=== PATIENT | male | born 1940 | race Caucasian/White ===

== ENCOUNTER → 2019-04-01 | Outpatient (CLI) | payer MEDICARE, OTHER ==
--- NOTE | 2019-04-01 13:57 | Diagnostic Imaging Report ---
EXAMINATION: Magnetic resonance imaging of the right shoulder without contrast. DATE: April 01, 2019. COMPARISON: None. HISTORY: 79-year-old male, right shoulder pain. Fall one week ago. TECHNIQUE: Magnetic Resonance Imaging sequences were performed of the shoulder without contrast. FINDINGS: ROTATOR CUFF, LIGAMENTS, TENDONS, AND MUSCLES: There are full thickness full width tears of supraspinatus, infraspinatus, and subscapularis. Tendon retraction is near the level of the glenoid. There is severe fatty atrophy of these muscles. The teres minor tendon and muscle are intact. There are intramuscular ganglion cyst associated with supraspinatus, infraspinatus, and subscapularis. LONG HEAD OF BICEPS: The long head of biceps tendon is medially dislocated outside of the bicipital groove. The biceps labral attachment does appear to be intact. GLENOHUMERAL JOINT: The humeral head is superiorly subluxed and directly abuts the undersurface of the acromion. There is asymmetric widening of the posterior aspect of the glenohumeral joint. There are broad areas of full-thickness cartilage loss of the glenoid. There is a large glenohumeral joint effusion. There is an intra-articular body in the subscapularis recess measuring approximately 10 x 7 mm in size. There is a probable posterior labral tear. There is irregularity of the superior labrum. ACROMIOCLAVICULAR JOINT: The acromioclavicular joint is normally aligned. The coracoclavicular and coracoacromial ligaments are intact. There are moderate acromioclavicular degenerative changes. The inferior margin of the distal clavicle is extending 8 mm below the joint margin. BONE: There is a probable fracture rather than atypical os acromiale of the tip of the acromion. There is no additional identified potential fracture. BURSAE AND SOFT TISSUES: There is fluid in the subacromial subdeltoid bursa consistent with the full-thickness rotator cuff tendon tears, bursitis, and/or recent injection. IMPRESSION: 1. Massive rotator cuff tendon tear with full thickness full width tears of the supraspinatus, infraspinatus, and subscapularis tendons with tendon retraction near the level of the glenoid and severe fatty atrophy of these muscles. There are also intramuscular ganglion cysts associated with supraspinatus, infraspinatus, and subscapularis. 2. Acromial clavicular degenerative changes with extension of the inferior margin of the distal clavicle 8 mm below the expected joint margin. 3. The long head of biceps tendon is medially dislocated outside of the bicipital groove although is otherwise intact. 4. Severe glenohumeral arthritis. Large glenohumeral joint effusion with intra-articular body in the subscapularis recess measuring 10 x 7 mm in size. 5. Probable mildly displaced fracture of the tip of the acromion rather than atypical variant os acromiale. Dictated by: Dictated on workstation # [id number]
== END ==
LOC: RAD 12:15
PROVIDERS: ATTEND Family Medicine
DX: M75.101 Unspecified rotator cuff tear or rupture of right shoulder, not specified as traumatic (principal); M19.011 Primary osteoarthritis, right shoulder
CPT/HCPCS: 73221

== ENCOUNTER 2019-07-18 21:53 | Emergency (ER) | payer MEDICARE, OTHER ==
[~2019-07-18] VITALS: Ht 175.3 cm; Wt 112.7 kg
--- OUTSIDE RECORDS SUMMARY | 2019-07-18 22:02 | XMS REPORT | Clinical Summary ---
Author Author Admin, Adam White Organization [facility] Address Unknown Phone Unavailable Allergies, Adverse Reactions, Alerts Allergy Name Reaction Description Start Date Severity Status Pr ovider Allergies Unknown Conditions or Problems Problem Name Problem Code Onset Date Status Entry Date Provider Comment Standard Description Annotate Scrotal mass 608.89 Active Amber Babcock MD Other specified disorders of male genital organs Influenza Vaccination for Prophylaxis V04.81 Inactive Amber Babcock MD Need for prophylactic vaccin ation and inoculation against influenza Influenza Vaccination for Prophylaxis ICD-V04.81 9 Inactive Chanel Trejo HOSPITAL NURSING ASSISTANT Medication List Medication Instructions Start Date Stop Date Generic Name NDC Status Provider Patient Instruction Drug Treatment Unknown - unknown Advance Directives Directive Description Start Date PERMISSION TO SHARE Encounters Code Encounter Date Provider Facility CPT-24367 Level 3 New Patient 06:56:37 SENIOR FORMULATION SCIENTIST Amber wood MD [facility] Procedures Code Procedure Name Date Entry Date Standard Desc ription CPT-49110 Ultrasound - Prostatic for Bx 06:56:37 SENIOR FORMULATION SCIENTIST
--- OUTSIDE RECORDS SUMMARY | 2019-07-18 22:02 | XMS REPORT | Clinical Summary ---
Author Author Admin, Adam White Organization [facility] Address Unknown Phone Unavailable Allergies, Adverse Reactions, Alerts Allergy Name Reaction Description Start Date Severity Status Pr ovider ADVAIR swelling, SOA Critical Active Chanel middleton LPN Conditions or Problems Problem Name Problem Code Onset Date Status Entry Date Provider Comment Standard Description Annotate Scrotal mass 608.89 Active Amber Babcock MD Other specified disorders of male genital organs Influenza Vaccination for Prophylaxis V04.81 Inactive Amber Babcock MD Need for prophylactic vaccin ation and inoculation against influenza BMI 36-36.9 Active Amber Babcock MD Body Mass Index 36.0- 36.9, adult INGUINAL HERNIA, RIGHT 550.90 Active Amber Babcock MD Unilateral or unspecified inguinal herni a, without mention of obstruction or gangrene (not specified as recurrent) Phimosis 605 Active Amber Babcock MD Redundant prepuce and phimosis Influenza Vaccination for Prophylaxis ICD-V04.81 9 Inactive Chanel Trejo LPN Medication List Medication Instructions Start Date Stop Date Generic Name NDC Status Provider Patient Instruction NORCO 5-325 MG ORAL TABLET 1 tablet as needed every 6 hours HYDROCODONE-ACETAMINOPHEN 59419861268 Active Chanel Trejo LPN Active HYDROCHLOROTHIAZIDE 25 MG ORAL TABLET once daily in the morning 201 10/21/18 HYDROCHLOROTHIAZIDE 78877615002 Active Chanel Trejo LPN Acti ve FLOMAX 0.4 MG ORAL CAPSULE once daily TAMSULOSIN HCL 74405628299 Active Chanel Trejo LPN Active NAPROXEN 500 MG ORAL TABLET 1 tablet twice daily NAPROXEN 38985608098 Active Chanel Trejo SPECIAL EVENTS ASSISTANT Active PAXIL 40 MG ORAL TABLET 1 tablet in the morning, daily PAROXETINE HCL 52347015039 Active Chanel Trejo SPECIAL EVENTS ASSISTANT Active ZOCOR 20 MG ORAL TABLET 1 tablet in the evening SIMVASTATIN 29207637452 Active Chanel Trejo SPECIAL EVENTS ASSISTANT Active LISINOPRIL 20 MG ORAL TABLET once daily LISINOPRI L 29468950233 Active Chanel Trejo SPECIAL EVENTS ASSISTANT Active PROSCAR 5 MG ORAL TABLET once daily FINASTERIDE 24203 489256 Active Chanel Trejo SPECIAL EVENTS ASSISTANT Active Advance Directives Directive Description Start Date PERMISSION TO SHARE Vital Signs Date Name Value Unit Range Description blood pressure, diastolic, repeated by physician 80 BP wilkinson blood pressure, diastolic 80 mm[Hg] BP wilkinson blood pressure, systolic, repeated by physician 120 BP sys blood pressure, systolic 120 mm[Hg] BP sys height E&M 69 [in_us] Bdy height pulse rate E&M 90 /min Heart rate temperature E&M 98.2 [degF] Body temp erature weight E&M 248 [lb_av] Weight Measure d blood pressure, diastolic 80 mm[Hg] BP wilkinson blood pressure, systolic 136 mm[Hg] BP sys height E&M 69 [in_us] Bdy height weight E&M 248 [lb_av] Weight Measure d Diagnostic Results Date Name Value Unit Range Description Office Visit: f/u inguinal hernia repair /circumcision - PMH sexually transmitted disease no risk noted Encounters Code Encounter Date Provider Facility CPT-79434 Level 3 Est. Patient 14:23:19 CDT Amber simmons MD [facility] CPT-53116 Level 3 New Patient 06:56:37 QUAL FIELD MANAGER Amber wood MD [facility] Procedures Code Procedure Name Date Entry Date Standard Desc ription CPT-20258 Ultrasound - Prostatic for Bx 06:56:37 QUAL FIELD MANAGER
--- OUTSIDE RECORDS SUMMARY | 2019-07-18 22:02 | XMS REPORT ---
Author Author Adam LEMON Organization [facility] Address [address] [address] Care Team Providers Care Water Plant Maintenance Mechanic Name Role Phone ION WINSOME Unavailable PROBLEMS Type Condition ICD9-CM Code IWO33-HA Code Onset Dates Condition S tatus SNOMED Code Problem Essential hypertension I10 Active 11916429 Problem Other chronic pain G89.29 Active 8 1396078 Problem Elevated cholesterol E78.00 Active 98279756 Problem History of colon resection Z90.49 Act alyson 147211533 Problem Depressed mood F32.9 Active 87207 9004 Problem Gastroesophageal reflux disease without esophagitis K21.9 Active 141218937 ALLERGIES No Information ENCOUNTERS Encounter Location Date Diagnosis [place] [address] [place] [phone] June [place] [address] [place] [phone] [address] June Gastroesophageal reflux disease without esophagitis K21.[address] [address] [address] [address] May [place] [address] [place] [phone] [address] Mar, Elevated glucose R73.09 and Diarrhea, un specified type R19.7 [place] [address] [place] [address] Mar Elevated glucose R73.09 ; Gastroesophageal reflux disease without esophagitis K21.9 ; History of colon resection Z90.49 ; Diarrhea, unspecified type R19.7 and Lower abdominal pain R10.[address] [address] Mar, [address] [address] Mar, [address] [address] Feb, Elevated glucose R73.[address] [address] Feb, Elevated cholesterol E78.00 ; Depressed mood F32.9 ; Pain in unspecified joint M25.50 ; Other chronic pain G89.29 ; Gastroesophageal reflux disease without esophagitis K21.9 ; Essential hypertension I10 and History of colon resection Z90.49 [facility] [address] [facility] [id number] [place] [address] Feb, [address] [address] Feb, [address] [address] Feb, IMMUNIZATIONS No Known Immunizations SOCIAL HISTORY Never Assessed REASON FOR VISIT JLA ESCRIBE PLAN OF CARE VITAL SIGNS MEDICATIONS Medication Instructions Dosage Frequency Start Date End Date Duration S tatus Bradley 5-325 MG Orally every 6 hrs 1 tablet as needed 6h 07 Apr, 201 9 28 days Active RESULTS No Results PROCEDURES No Known procedures INSTRUCTIONS MEDICATIONS ADMINISTERED No Known Medications MEDICAL (GENERAL) HISTORY Type Description Date 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
--- OUTSIDE RECORDS SUMMARY | 2019-07-18 22:02 | XMS REPORT | Clinical Summary ---
Author Author Admin, Adam White Organization [facility] Address Unknown Phone Unavailable Allergies, Adverse Reactions, [...] for Prophylaxis ICD-V04.81 9 Inactive Chanel Trejo CHEMICAL PROCESS ANALYST Medication List Medication Instructions Start Date Stop Date Generic Name NDC Status Provider Patient Instruction Drug Treatment Unknown - unknown Encounters Code Encounter Date Provider Facility CPT-72033 Level 3 New Patient 06:56:37 WIPER BLENDER Amber wood MD [facility] Procedures Code Procedure Name Date Entry Date Standard Desc ription CPT-92534 Ultrasound - Prostatic for Bx 06:56:37 WIPER BLENDER
--- OUTSIDE RECORDS SUMMARY | 2019-07-18 22:02 | XMS REPORT | Clinical Summary ---
Author Author Admin, Adam White Organization [facility] Address Unknown Phone Unavailable Allergies, Adverse Reactions, [...] tablet as needed every 6 hours HYDROCODONE-ACETAMINOPHEN 31036494284 Active Chanel Trejo LPN Active HYDROCHLOROTHIAZIDE 25 MG ORAL TABLET once daily in the morning 201 10/21/18 HYDROCHLOROTHIAZIDE 92332076614 Active Chanel Trejo LPN Acti ve FLOMAX 0.4 MG ORAL CAPSULE once daily TAMSULOSIN HCL 88782394269 Active Chanel Trejo LPN Active NAPROXEN 500 MG ORAL TABLET 1 tablet twice daily NAPROXEN 46710989317 Active Chanel Trejo JACKSPOOLER Active PAXIL 40 MG ORAL TABLET 1 tablet in the morning, daily PAROXETINE HCL 90422327997 Active Chanel Trejo JACKSPOOLER Active ZOCOR 20 MG ORAL TABLET 1 tablet in the evening SIMVASTATIN 99625438846 Active Chanel Trejo JACKSPOOLER Active LISINOPRIL 20 MG ORAL TABLET once daily LISINOPRI L 50457990717 Active Chanel Trejo JACKSPOOLER Active PROSCAR 5 MG ORAL TABLET once daily FINASTERIDE 46192 976736 Active Chanel Trejo JACKSPOOLER Active Advance Directives Directive Description Start Date [...] noted Encounters Code Encounter Date Provider Facility CPT-24864 Level 3 Est. Patient 14:23:19 CDT Amber simmons MD [facility] CPT-90666 Level 3 New Patient 06:56:37 STAFF NUCLEAR MEDICINE TECHNOLOGIST Amber wood MD [facility] Procedures Code Procedure Name Date Entry Date Standard Desc ription CPT-79042 Ultrasound - Prostatic for Bx 06:56:37 STAFF NUCLEAR MEDICINE TECHNOLOGIST
--- OUTSIDE RECORDS SUMMARY | 2019-07-18 22:02 | XMS REPORT | Clinical Summary ---
Author Author Admin, Adam White Organization [facility] Address Unknown Phone Unavailable Allergies, Adverse Reactions, Alerts Allergy Name Reaction Description Start Date Severity Status Pr ovider ADVAIR swelling, SOA Critical Active Chanel Gilberto t EXPANDER MACHINE OPERATOR Conditions or Problems Problem Name Problem Code Onset Date Status Entry Date Provider Comment Standard Description Annotate Scrotal mass 608.89 Active Amber Babcock MD Other specified disorders of male genital organs Influenza Vaccination for Prophylaxis V04.81 Inactive Amber Babcock MD Need for prophylactic vaccin ation and inoculation against influenza Influenza Vaccination for Prophylaxis ICD-V04.81 9 Inactive Chanel Trejo EXPANDER MACHINE OPERATOR Medication List Medication Instructions Start Date Stop Date Generic Name NDC Status Provider Patient Instruction NORCO 5-325 MG ORAL TABLET 1 tablet as needed every 6 hours HYDROCODONE-ACETAMINOPHEN 59753435979 Active Chanel Trejo EXPANDER MACHINE OPERATOR Active HYDROCHLOROTHIAZIDE 25 MG ORAL TABLET once daily in the morning 201 10/21/18 HYDROCHLOROTHIAZIDE 79965071466 Active Chanel Trejo EXPANDER MACHINE OPERATOR Acti ve FLOMAX 0.4 MG ORAL CAPSULE once daily TAMSULOSIN HCL 33681071001 Active Chanel Trejo EXPANDER MACHINE OPERATOR Active NAPROXEN 500 MG ORAL TABLET 1 tablet twice daily NAPROXEN 39016109238 Active Chanel Trejo EXPANDER MACHINE OPERATOR Active PAXIL 40 MG ORAL TABLET 1 tablet in the morning, daily PAROXETINE HCL 85522829631 Active Chanel Trejo EXPANDER MACHINE OPERATOR Active ZOCOR 20 MG ORAL TABLET 1 tablet in the evening SIMVASTATIN 55114210366 Active Chanel Trejo EXPANDER MACHINE OPERATOR Active LISINOPRIL 20 MG ORAL TABLET once daily LISINOPRI L 68859836895 Active Chanel Trejo EXPANDER MACHINE OPERATOR Active PROSCAR 5 MG ORAL TABLET once daily FINASTERIDE 80769 067476 Active Chanel Trejo LPN Active Advance Directives Directive Description Start Date PERMISSION TO SHARE Vital Signs Date Name Value Unit Range Description blood pressure, diastolic 80 mm[Hg] BP wilkinson blood pressure, systolic 136 mm[Hg] BP sys height E&M 69 [in_us] Bdy height weight E&M 248 [lb_av] Weight Measure d Encounters Code Encounter Date Provider Facility CPT-46612 Level 3 New Patient 06:56:37 AIRPLANE PILOT COMMERCIAL Amber wood MD [facility] Procedures Code Procedure Name Date Entry Date Standard Desc ription CPT-60754 Ultrasound - Prostatic for Bx 06:56:37 AIRPLANE PILOT COMMERCIAL
--- OUTSIDE RECORDS SUMMARY | 2019-07-18 22:02 | XMS REPORT | Clinical Summary ---
Author Author Admin, Adam White Organization [facility] Address Unknown Phone Unavailable Allergies, Adverse Reactions, Alerts Allergy Name Reaction Description Start Date Severity Status Pr ovider ADVAIR swelling, SOA Critical Active Chanel Gilberto t IT SYSTEMS ADMINISTRATOR Conditions or Problems Problem Name Problem Code Onset Date Status Entry Date Provider Comment Standard Description Annotate Scrotal mass 608.89 Active Amber Babcock MD Other specified disorders of male genital organs Influenza Vaccination for Prophylaxis V04.81 Inactive Amber Babcock MD Need for prophylactic vaccin ation and inoculation against influenza Influenza Vaccination for Prophylaxis ICD-V04.81 9 Inactive Chanel Trejo IT SYSTEMS ADMINISTRATOR Medication List Medication Instructions Start Date Stop Date Generic Name NDC Status Provider Patient Instruction NORCO 5-325 MG ORAL TABLET 1 tablet as needed every 6 hours HYDROCODONE-ACETAMINOPHEN 77752462398 Active Chanel Trejo IT SYSTEMS ADMINISTRATOR Active HYDROCHLOROTHIAZIDE 25 MG ORAL TABLET once daily in the morning 201 10/21/18 HYDROCHLOROTHIAZIDE 63825927461 Active Chanel Trejo IT SYSTEMS ADMINISTRATOR Acti ve FLOMAX 0.4 MG ORAL CAPSULE once daily TAMSULOSIN HCL 08086986832 Active Chanel Trejo IT SYSTEMS ADMINISTRATOR Active NAPROXEN 500 MG ORAL TABLET 1 tablet twice daily NAPROXEN 72786997293 Active Chanel Trejo IT SYSTEMS ADMINISTRATOR Active PAXIL 40 MG ORAL TABLET 1 tablet in the morning, daily PAROXETINE HCL 48061347487 Active Chanel Trejo IT SYSTEMS ADMINISTRATOR Active ZOCOR 20 MG ORAL TABLET 1 tablet in the evening SIMVASTATIN 53173611571 Active Chanel Trejo IT SYSTEMS ADMINISTRATOR Active LISINOPRIL 20 MG ORAL TABLET once daily LISINOPRI L 66747387267 Active Chanel Trejo IT SYSTEMS ADMINISTRATOR Active PROSCAR 5 MG ORAL TABLET once daily FINASTERIDE 75485 287231 Active Chanel Trejo LPN Active Advance Directives Directive Description Start Date PERMISSION TO SHARE Vital Signs Date Name Value Unit Range Description blood pressure, diastolic 80 mm[Hg] BP wilkinson blood pressure, systolic 136 mm[Hg] BP sys height E&M 69 [in_us] Bdy height weight E&M 248 [lb_av] Weight Measure d Encounters Code Encounter Date Provider Facility CPT-34044 Level 3 New Patient 06:56:37 OIL BURNER JOURNEYMAN J Wesley wood MD [facility] Procedures Code Procedure Name Date Entry Date Standard Desc ription CPT-03247 Ultrasound - Prostatic for Bx 06:56:37 OIL BURNER JOURNEYMAN
--- OUTSIDE RECORDS SUMMARY | 2019-07-18 22:02 | XMS REPORT | Clinical Summary ---
Author Author Admin, Adam White Organization [facility] Address Unknown Phone Unavailable Allergies, Adverse Reactions, [...] for Prophylaxis ICD-V04.81 9 Inactive Chanel Trejo URBAN REDEVELOPMENT SPECIALIST Medication List Medication Instructions Start Date Stop Date Generic Name NDC Status Provider Patient Instruction Drug Treatment Unknown - unknown Encounters Code Encounter Date Provider Facility CPT-95695 Level 3 New Patient 06:56:37 PLASTERER SPRAY GUN Amber wood MD [facility] Procedures Code Procedure Name Date Entry Date Standard Desc ription CPT-19153 Ultrasound - Prostatic for Bx 06:56:37 PLASTERER SPRAY GUN
--- OUTSIDE RECORDS SUMMARY | 2019-07-18 22:02 | XMS REPORT | Clinical Summary ---
Author Author Admin, Adam White Organization [facility] Address Unknown Phone Unavailable Allergies, [...] for Prophylaxis ICD-V04.81 9 Inactive Chanel Trejo GROUND CREWMAN Medication List Medication Instructions Start Date Stop Date Generic Name NDC Status Provider Patient Instruction Drug Treatment Unknown - unknown Advance Directives Directive Description Start Date PERMISSION TO SHARE Encounters Code Encounter Date Provider Facility CPT-53450 Level 3 New Patient 06:56:37 STEWARD/STEWARDESS DINING ROOM Amber wood MD [facility] Procedures Code Procedure Name Date Entry Date Standard Desc ription CPT-01381 Ultrasound - Prostatic for Bx 06:56:37 STEWARD/STEWARDESS DINING ROOM
--- OUTSIDE RECORDS SUMMARY | 2019-07-18 22:02 | XMS REPORT | Clinical Summary ---
Author Author Admin, Adam White Organization [facility] Address Unknown Phone Unavailable Allergies, Adverse [...] tablet as needed every 6 hours HYDROCODONE-ACETAMINOPHEN 22183772017 Active Chanel Trejo LPN Active HYDROCHLOROTHIAZIDE 25 MG ORAL TABLET once daily in the morning 201 10/21/18 HYDROCHLOROTHIAZIDE 53132155434 Active Chanel Trejo LPN Acti ve FLOMAX 0.4 MG ORAL CAPSULE once daily TAMSULOSIN HCL 26778776897 Active Chanel Trejo LPN Active NAPROXEN 500 MG ORAL TABLET 1 tablet twice daily NAPROXEN 65736942929 Active Chanel Trejo FOOD MANAGER Active PAXIL 40 MG ORAL TABLET 1 tablet in the morning, daily PAROXETINE HCL 16604229760 Active Chanel Trejo FOOD MANAGER Active ZOCOR 20 MG ORAL TABLET 1 tablet in the evening SIMVASTATIN 44204015182 Active Chanel Trejo FOOD MANAGER Active LISINOPRIL 20 MG ORAL TABLET once daily LISINOPRI L 43634915188 Active Chanel Trejo FOOD MANAGER Active PROSCAR 5 MG ORAL TABLET once daily FINASTERIDE 17984 185289 Active Chanel Trejo FOOD MANAGER Active Advance Directives Directive Description Start Date [...] noted Encounters Code Encounter Date Provider Facility CPT-25308 Level 3 Est. Patient 14:23:19 CDT Amber simmons MD [facility] CPT-37388 Level 3 New Patient 06:56:37 NEWSPERSON Amber wood MD [facility] Procedures Code Procedure Name Date Entry Date Standard Desc ription CPT-89012 Ultrasound - Prostatic for Bx 06:56:37 NEWSPERSON
--- OUTSIDE RECORDS SUMMARY | 2019-07-18 22:02 | XMS REPORT | Continuity of Care Document ---
Author Organization Unknown Address Unknown Phone Unavailable Allergies There is no data. Medications There is no data. Problems Date Dx Coded Attending Type Code Diagnosis Diagnosed By 04/26/2018 Amber Babcock MD N5 0.9 Scrotal mass 06/04/2018 Amber Babcock MD K40.90 INGUINAL HERNIA, RIGHT 06/04/2018 Amber Babcock MD N4 7.1 Phimosis 06/04/2018 Amber Babcock MD Z68.36 BMI 36-36.9 04/02/2019 WINSOME LEMON MD Ot M19.011 PRIMARY OSTEOARTHRITIS, RIGHT SHOULDER 04/02/2019 ION HANKS, WINSOME Ham Ot M75.101 UNSP ROTATR-CUFF TEAR/RUPTR OF RIGHT MELLO 04/29/2019 WINSOME LEMON MD Ot M19.011 PRIMARY OSTEOARTHRITIS, RIGHT SHOULDER 04/29/2019 WINSOME LEMON MD Ot M75.101 UNSP ROTATR-CUFF TEAR/RUPTR OF RIGHT MELLO Procedures There is no data. Results Test Result Range STOOL (C-DIFF) - 04/10/18 13:55 CLOSTRIDIUM DIFFICILE TOXIN/GDH W/REFL TO PCR SEE NOTE NRG STOOL FECAL FAT, QUAL - 04/10/18 13:55 STOOL (WBC) - 04/10/18 13:55 FECAL LEUKOCYTE STAIN SEE NOTE NRG CULTURE, STOOL - 04/10/18 13:55 SALMONELLA AND SHIGELLA, CULTURE SEE NOTE NRG TSH - 12/03/18 09:50 TSH 1.73 mIU/L 0.40-4.50 A1C - 12/03/18 09:50 HEMOGLOBIN A1c 6.9 % of total Hgb <5.7 TEST AUTHORIZATION - 12/03/18 09:50 TEST NAME: HEMOGLOBIN A1c NRG TEST CODE: 496SB NRG CLIENT CONTACT: TISH VELIZ NRG REPORT ALWAYS MESSAGE SIGNATURE NRG COMMENT NRG TEST AUTHORIZATION - 03/17/19 10:15 TEST NAME: PATHOLOGIST REVIEW OF NRG TEST CODE: 833SB NRG CLIENT CONTACT: IBAN CARBAJAL NRG REPORT ALWAYS MESSAGE SIGNATURE NRG COMMENT NRG A1C - 07/01/19 07:54 HEMOGLOBIN A1c 6.6 % of total Hgb <5.7 Encounters ACCT No. Visit Date/Time Discharge Status Pt. Type Provider Facility Loc./Unit Complaint [id number] 07/01/2019 08:00:00 07/01/2019 23:59: 59 CLS Outpatient WINSOME LEMON [facility] [id number] 07/01/2019 08:00:00 Document Registration [id number] 03/17/2019 09:45:00 Document Registration [id number] 12/03/2018 09:20:00 Document Registration [id number] 04/10/2018 12:15:00 Document Registration [id number] 08/01/2018 20:07:10 ACT Unknown Amber Babcock MD [id number] 04/01/2019 12:15:00 020 23:59:59 CLS Outpatient ION HANKS, WINSOME [facility] RAD RIGHT SHOULDER PAIN [id number] 08/02/2018 09:15:50 ACT Document Registration
--- NOTE | 2019-07-18 22:30 | ED General ---
General Stated Complaint: LOW BACK PAIN History of Present Illness Date Seen by Provider: July 18, 2019 Time Seen by Provider: 22:25 Initial Comments Patient somewhat poor historian limited by possible opioid ingestion history obtained from family member in been complaining of back pain [place] given a prescription for 10 mg hydrocodone such she took and then was having some more discomfort and so he self medicated with others that he had and then began acting strange according to his . She currently denies any pain he is awake and alert is oriented to self and recent history remittent lately chest Setser with a blank stare and doesn't answer questions. Was able to self move himself from the wheelchair to the bed [place] chest pain or shortness of breath or alteration in his sensorimotor function. Timing/Duration: 4-6 Hours Allergies and Home Medications Allergies Coded Allergies: fluticasone (Verified Allergy, Unknown, 07/18/19) salmeterol (Verified Allergy, Unknown, 07/18/19) Patient Home Medication List Home Medication List Reviewed: Yes Review of Systems Review of Systems Constitutional: no symptoms reported EENTM: no symptoms reported Respiratory: no symptoms reported Cardiovascular: no symptoms reported Gastrointestinal: no symptoms reported Genitourinary: no symptoms reported Musculoskeletal: see HPI, back pain Skin: no symptoms reported Psychiatric/Neurological: See HPI All Other Systems Reviewed Negative Unless Noted: Yes Past Wihdwjd-Wffopw-Wvssvj Hx Past Med/Social Hx: Reviewed Nursing Past Med/Soc Hx Patient Social History Recent Foreign Travel: No Contact w/Someone Who Travel: No Physical Exam Vital Signs Vital Signs - First Documented 07/18/19 22:32 Temp 36.5 Pulse 80 Resp 20 B/P (MAP) 83/49 (60) Pulse Ox 97 O2 Delivery Room Air Capillary Refill : Height, Weight, BMI Height: '" Weight: lbs. oz. kg; BMI Method: General Appearance: No Apparent Distress, Obese Eyes: Bilateral Eye Normal Inspection, Bilateral Eye PERRL HEENT: Normal ENT Inspection, Pharynx Normal, Moist Mucous Membranes Neck: Full Range of Motion, Normal Inspection, Non Tender, Supple Respiratory: Chest Non Tender, Decreased Breath Sounds Cardiovascular: Regular Rate, Rhythm, Normal Peripheral Pulses, Other (trace edema bilaterally) Gastrointestinal: Normal Bowel Sounds, No Pulsatile Mass, Non Tender, Soft Back: Normal Inspection, No CVA Tenderness Extremity: Normal Capillary Refill, Normal Inspection, Non Tender Neurologic/Psychiatric: Alert, Oriented x3, No Motor/Sensory Deficits Skin: Normal Color, Warm/Dry Focused Exam Lactate Level 07/18/19 22:25: Lactic Acid Level 1.36 Lactic Acid Level Laboratory Tests Test 07/18/19 22:25 Lactic Acid Level 1.36 MMOL/L (0.50-2.00) Progress/Results/Core Measures Suspected Sepsis SIRS Temperature: Pulse: Respiratory Rate: Laboratory Tests 07/18/19 22:25: White Blood Count 9.6 Blood Pressure / Mean: 07/18/19 22:25: Lactic Acid Level 1.36 Laboratory Tests 07/18/19 22:25: Creatinine 1.65H, INR Comment 1.1, Platelet Count 154, Total Bilirubin 1.4H Results/Orders Lab Results Laboratory Tests Test 07/18/19 22:25 Range/Units White Blood Count 9.6 4.3-11.0 10^3/uL Red Blood Count 3.59 L 4.35-5.85 10^6/uL Hemoglobin 10.5 L 13.3-17.7 G/DL Hematocrit 33 L 40-54 % Mean Corpuscular Volume 91 80-99 FL Mean Corpuscular Hemoglobin 29 25-34 PG Mean Corpuscular Hemoglobin Concent 32 32-36 G/DL Red Cell Distribution Width 14.4 10.0-14.5 % Platelet Count 154 130-400 10^3/uL Mean Platelet Volume 9.5 7.4-10.4 FL Neutrophils (%) (Auto) 85 H 42-75 % Lymphocytes (%) (Auto) 6 L 12-44 % Monocytes (%) (Auto) 9 0-12 % Eosinophils (%) (Auto) 0 0-10 % Basophils (%) (Auto) 0 0-10 % Neutrophils # (Auto) 8.1 H 1.8-7.8 X 10^3 Lymphocytes # (Auto) 0.6 L 1.0-4.0 X 10^3 Monocytes # (Auto) 0.8 0.0-1.0 X 10^3 Eosinophils # (Auto) 0.0 0.0-0.3 10^3/uL Basophils # (Auto) 0.0 0.0-0.1 10^3/uL Neutrophils % (Manual) 86 % Lymphocytes % (Manual) 8 % Monocytes % (Manual) 5 % Band Neutrophils 1 % Prothrombin Time 14.4 12.2-14.7 SEC INR Comment 1.1 0.8-1.4 Sodium Level 135 135-145 MMOL/L Potassium Level 4.7 3.6-5.0 MMOL/L Chloride Level 98 98-107 MMOL/L Carbon Dioxide Level 23 21-32 MMOL/L Anion Gap 14 5-14 MMOL/L Blood Urea Nitrogen 31 H 7-18 MG/DL Creatinine 1.65 H 0.60-1.30 MG/DL Estimat Glomerular Filtration Rate 41 BUN/Creatinine Ratio 19 Glucose Level 221 H 70-105 MG/DL Lactic Acid Level 1.36 0.50-2.00 MMOL/L Calcium Level 9.1 8.5-10.1 MG/DL Corrected Calcium 8.5-10.1 MG/DL Total Bilirubin 1.4 H 0.1-1.0 MG/DL Aspartate Amino Transf (AST/SGOT) 26 5-34 U/L Alanine Aminotransferase (ALT/SGPT) 23 0-55 U/L Alkaline Phosphatase 60 40-136 U/L Pro-B-Type Natriuretic Peptide 378.9 H <75.0 PG/ML Total Protein 6.4 6.4-8.2 GM/DL Albumin 3.6 3.2-4.5 GM/DL Lipase 16 8-78 U/L My Orders Orders - MOHAN VERDIN DO Ed Iv/Invasive Line Start (07/18/19 22:16) Cbc And Manual Diff (07/18/19 22:16) Comprehensive Metabolic Panel (07/18/19 22:16) Lipase (07/18/19 22:16) Ekg Tracing (07/18/19 22:16) Chest 1 View Ap/Pa Only (07/18/19 22:16) Ct Head Wo (07/18/19 22:16) Ct Abd/Pelvis Wo(Kidney Stone) (07/18/19 22:16) Probnp Fs (07/18/19 22:16) Protime With Inr (07/18/19 22:16) Blood Culture (07/18/19 22:21) Lactic Acid Analyzer (07/18/19 22:21) Drug Screen Stat (Urine) (07/18/19 22:21) Ua Culture If Indicated (07/18/19 22:21) Lactated Ringers (Lr 1000 Ml Iv Solution (07/18/19 22:45) Vital Signs/I&O 07/18/19 22:32 Temp 36.5 Pulse 80 Resp 20 B/P (MAP) 83/49 (60) Pulse Ox 97 O2 Delivery Room Air Capillary Refill : Progress Note : Progress Note Patient presents after ingesting a moderately large quantity of hydrocodone for his age altered mental status and he has hypotension. His indeterminate history of back pain which is chronic but also acute with non-radiographic diagnosis of kidney stone. Differential is broad including aortic aneurysm kidney stone chronic back pain opioid ingestion possible sepsis urinary tract infection chow creatitis. The plan will be IV fluids advanced imaging urine drug screening as his oxygen saturations are fine will hold off on any Narcan at this point in time vital signs have normalized will perform sepsis screening and initiate pressor support currently will trial fluids and close monitoring observation clinical response ECG Initial ECG Impression Date: July 18, 2019 Initial ECG Impression Time: 22:30 Initial ECG Rate: 81 Initial ECG Rhythm: Normal Sinus Initial ECG Impression: Normal Departure Communication (Admissions) 1250 reevaluation patient wishes to go home is more awake and is able to stand unassisted and walk's pain is manageable still has 2-3 mm pupils but speech is much more clear than it was. This would indicate that he is on a half with improvement discussion with him concerning his pain medication needs to moderate it to believe at this point in time is safe to go home with no more pain medication tonight he is a limit his pain medication to one strength of tablet at a time follow-up with his primary care doctor on Saturday states that he is unable to provide urine after trying insetting too long and is tired wishes to go home. Find no clear reason to hold him Strand is one of clinical improvement and his history was clearly told to much hydrocodone so be safely discharged Impression Primary Impression: Accidental overdose by codeine Disposition: HOME, SELF-CARE Condition: Improved Departure-Patient Inst. Decision time for Depature: 00:51 Referrals: WINSOME LEMON MD (PCP/Family) Primary Care Physician Saturday for follow-up Patient Instructions: Accidental Overdose MOHAN VERDIN DO July 18, 2019 22:30
[2019-07-18 22:38] LABS: BASOPHILS % (AUTO) 0 % (0-10); EOSINOPHILS % (AUTO) 0 % (0-10); HEMATOCRIT 33 % (40-54); HEMOGLOBIN 10.5 G/DL (13.3-17.7); LYMPHOCYTES # (AUTO) 0.6 X 10^3 (1.0-4.0); LYMPHOCYTES % (AUTO) 6 % (12-44); MEAN CORPUSCULAR HEMOGLOBIN 29 PG (25-34); MEAN CORPUSCULAR HGB CONC 32 G/DL (32-36); MEAN CORPUSCULAR VOLUME 91 FL (80-99); MEAN PLATELET VOLUME 9.5 FL (7.4-10.4); MONOCYTES # (AUTO) 0.8 X 10^3 (0.0-1.0); MONOCYTES % (AUTO) 9 % (0-12); NEUTROPHILS # (AUTO) 8.1 X 10^3 (1.8-7.8); NEUTROPHILS % (AUTO) 85 % (42-75); PLATELET COUNT 154 10^3/uL (130-400); RED CELL DISTRIBUTION WIDTH 14.4 % (10.0-14.5); WHITE BLOOD COUNT 9.6 10^3/uL (4.3-11.0)
[2019-07-18 22:44] LABS: INR 1.1 (0.8-1.4); PROTHROMBIN TIME PATIENT 14.4 SEC (12.2-14.7)
[2019-07-18] MEDS ORDERED: LACTATED RINGERS 1,000 ML IV SCH (22:45)
[2019-07-18 22:56] LABS: POTASSIUM 4.7 MMOL/L (3.6-5.0); SODIUM 135 MMOL/L (135-145)
[2019-07-18 22:57] LABS: ALANINE AMINOTRANSFERASE 23 U/L (0-55); ALBUMIN 3.6 GM/DL (3.2-4.5); ALKALINE PHOSPHATASE 60 U/L (40-136); BILIRUBIN,TOTAL 1.4 MG/DL (0.1-1.0); BUN/CREATININE RATIO 19; CALCIUM 9.1 MG/DL (8.5-10.1); CARBON DIOXIDE 23 MMOL/L (21-32); CHLORIDE 98 MMOL/L (98-107); CREATININE SERUM 1.65 MG/DL (0.60-1.30); GFR ESTIMATED 41; GLUCOSE 221 MG/DL (70-105); LIPASE 16 U/L (8-78); TOTAL PROTEIN 6.4 GM/DL (6.4-8.2)
[2019-07-18 23:12] LABS: BAND NEUTROPHILS 1 %; LYMPHOCYTES % (MANUAL) 8 %; MONOCYTES % (MANUAL) 5 %; NEUTROPHILS % (MANUAL) 86 %
[2019-07-19 01:00] VITALS: BP 118/82
--- NOTE | 2019-07-19 06:13 | Diagnostic Imaging Report ---
EXAMINATION: CT Abdomen Pelvis without contrast. TECHNIQUE: Multiple contiguous axial images were obtained through the abdomen and pelvis without the use of intravenous contrast. All CT scans use one or more of the following dose optimizing techniques: automated exposure control, MA and/or KvP adjustment based on a patient size and exam type, or iterative reconstruction. HISTORY: Left flank pain COMPARISON: None available. FINDINGS: Limited views of the lower thorax show coronary artery calcifications. The liver is normal without focal lesion. There is no biliary ductal dilation. Gallbladder is surgically absent. Pancreas is normal. Spleen is normal. Adrenal glands are normal. There is a simple cyst in the right kidney. No renal stones are seen. There are no ureteral calculi. There is no hydronephrosis. There is right inguinal hernia with the bladder dome at the hernia orifice. Visualized bowel is normal in caliber without obstruction or inflammation. There has been a rectosigmoid resection. There is diverticulosis without diverticulitis. No free fluid or air. No abdominal or pelvic lymphadenopathy. Aorta is normal in caliber without aneurysm. There are no suspicious osseus lesions. IMPRESSION: 1. No acute abnormality in the abdomen or pelvis. Dictated by: Dictated on workstation # [id number]
--- NOTE | 2019-07-19 06:48 | Diagnostic Imaging Report ---
INDICATION: Pain COMPARISON: None available TECHNIQUE: Single radiograph chest dated 07/18/2019. FINDINGS: The cardiac silhouette is within normal limits in size. No significant pulmonary vascular congestion. Minimal bibasilar interstitial opacities, right greater than left. No pleural effusion. No pneumothorax. No acute osseous abnormality. IMPRESSION: Minimal right greater than left bibasilar atelectasis and/or pneumonitis. Dictated by: Dictated on workstation # [id number]
--- NOTE | 2019-07-19 07:44 | Diagnostic Imaging Report ---
PROCEDURE: CT head without contrast. TECHNIQUE: Multiple contiguous axial images were obtained through the brain without the use of intravenous contrast. Auto Exposure Controls were utilized during the CT exam to meet ALARA standards for radiation dose reduction. INDICATION: Pain COMPARISON: None available FINDINGS: Age-appropriate volume loss. No intracranial hemorrhage. No intracranial mass, mass effect, midline shift, herniation, hydrocephalus, or extra-axial fluid collection. No CT evidence of an acute ischemic infarction. The bilateral ocular lenses are absent. The visualized paranasal sinuses are clear. The calvarium and extracalvarial soft tissues are unremarkable. IMPRESSION: Unremarkable examination for age without acute intracranial abnormality. Agree with preliminary interpretation. Dictated by: Dictated on workstation # [id number]
== END 2019-07-19 01:00 | disposition home or self-care (01) ==
LOC: EDUNIT# 21:53 → ER FS 21:58
DX: T40.2X1A Poisoning by other opioids, accidental (unintentional), initial encounter (principal); Z88.8 Allergy status to other drugs, medicaments and biological substances
CPT/HCPCS: 36415; 70450; 71045; 74176; 80053; 83605; 83690; 83880; 85007; 85027; 85610; 87040; 87077; 87186; 93005; 96360

== ENCOUNTER → 2019-09-29 | Outpatient (CLI) | payer MEDICARE, OTHER ==
[2019-09-29 17:46] LABS: BASOPHILS % (AUTO) 1 % (0-10); EOSINOPHILS % (AUTO) 2 % (0-10); HEMATOCRIT 35 % (40-54); HEMOGLOBIN 11.1 G/DL (13.3-17.7); LYMPHOCYTES # (AUTO) 1.1 X 10^3 (1.0-4.0); LYMPHOCYTES % (AUTO) 14 % (12-44); MEAN CORPUSCULAR HEMOGLOBIN 28 PG (25-34); MEAN CORPUSCULAR HGB CONC 32 G/DL (32-36); MEAN CORPUSCULAR VOLUME 89 FL (80-99); MEAN PLATELET VOLUME 10.3 FL (7.4-10.4); MONOCYTES % (AUTO) 10 % (0-12); NEUTROPHILS # (AUTO) 5.5 X 10^3 (1.8-7.8); NEUTROPHILS % (AUTO) 72 % (42-75); PLATELET COUNT 191 10^3/uL (130-400); RED CELL DISTRIBUTION WIDTH 15.5 % (10.0-14.5); WHITE BLOOD COUNT 7.6 10^3/uL (4.3-11.0)
[2019-09-29 17:47] LABS: EOSINOPHILS # (AUTO) 0.2 10^3/uL (0.0-0.3); ERYTHROCYTE SEDIMENTATION RATE 35 MM/HR (0-30); MONOCYTES # (AUTO) 0.8 X 10^3 (0.0-1.0)
[2019-09-29 17:57] LABS: ALBUMIN 4.4 GM/DL (3.2-4.5); BILIRUBIN,TOTAL 0.8 MG/DL (0.1-1.0); CALCIUM 9.7 MG/DL (8.5-10.1); CREATININE SERUM 1.61 MG/DL (0.60-1.30); POTASSIUM 3.2 MMOL/L (3.6-5.0); TOTAL PROTEIN 7.1 GM/DL (6.4-8.2)
== END ==
LOC: LAB FS 16:57
PROVIDERS: ATTEND Family Medicine
DX: M46.26 Osteomyelitis of vertebra, lumbar region (principal); G06.1 Intraspinal abscess and granuloma
CPT/HCPCS: 36415; 80053; 85025; 85652; 86141

== ENCOUNTER → 2020-08-17 | Outpatient (CLI) | payer MEDICARE, OTHER ==
[~2020-08-17] MED LIST: GADOBUTROL 10 MMOL/10 ML (GADAVIST) VIAL IV ONE
--- NOTE | 2020-08-17 12:47 | Diagnostic Imaging Report ---
PROCEDURE: MRI lumbar spine with and without contrast. TECHNIQUE: Multiplanar, multisequence MRI of the lumbar spine was performed with and without contrast. INDICATION: Low back pain. History of infection in the lumbar spine. Concern for recurrence. COMPARISON: CT abdomen and pelvis on 07/18/2019. FINDINGS: 5 lumbar type vertebral bodies are visualized with the last well-formed disc space designated L5-S1. No acute fracture or dislocation is seen in the lumbar spine. Laminectomy is noted at L4. There is stable grade 1 anterolisthesis of L4 on L5. Vertebral body heights are well-maintained. The bone marrow signal is normal. No abnormal enhancement is visualized. The conus terminates at the L1 level. No masses are seen associated with the conus or nerve roots of the cauda equina. No epidural collections are identified. Multilevel degenerative changes are seen in the lumbar spine with disc bulges, facet hypertrophy, and buckling of the ligamentum flavum. T12-L1: Facet hypertrophy results in no significant spinal canal narrowing and no significant foraminal narrowing. L1-L2: Broad-based disc bulge, facet hypertrophy, and buckling of the ligamentum flavum results in mild spinal canal narrowing and mild right and no left foraminal narrowing. L2-L3: Disc desiccation with disc osteophyte complex, facet hypertrophy, and buckling of the ligamentum flavum results in [id number]-[id number] spinal canal stenosis and moderate bilateral foraminal stenosis. L3-L4: Broad-based disc bulge, facet hypertrophy, and buckling of the ligamentum flavum results in moderate spinal canal stenosis and moderate right and [id number] left foraminal stenosis. L4-L5: Broad-based disc bulge, facet hypertrophy, and buckling of the ligamentum flavum results in moderate spinal canal stenosis and [id number]-[id number] bilateral foraminal stenosis. L5-S1: Facet hypertrophy and buckling of the ligamentum flavum results in no significant spinal canal narrowing and mild bilateral foraminal narrowing. Nonspecific edema is seen in the posterior soft tissues of the lumbar spine. IMPRESSION: 1. No acute fracture or dislocation in the lumbar spine. No abnormal enhancement. 2. Multilevel degenerative changes in the lumbar spine, greatest at L2-L3, L3-L4, and L4-L5. 3. Stable grade 1 anterolisthesis of L4 on L5 with laminectomy at the L4 level. Dictated by: Dictated on workstation # [id number]
== END ==
LOC: RAD 10:15
PROVIDERS: ATTEND Family Medicine
DX: M47.816 Spondylosis without myelopathy or radiculopathy, lumbar region (principal); M43.16 Spondylolisthesis, lumbar region; M48.062 Spinal stenosis, lumbar region with neurogenic claudication; Z98.890 Other specified postprocedural states
CPT/HCPCS: 72158

== ENCOUNTER → 2021-09-06 | Outpatient (CLI) | payer MEDICARE, OTHER ==
--- NOTE | 2021-09-06 15:02 | Diagnostic Imaging Report ---
PROCEDURE: MRI right lower extremity without contrast. TECHNIQUE: Multiplanar, multisequence non contrast-enhanced MRI of the right ankle joint was accomplished. INDICATION: Right foot pain. COMPARISON: None. FINDINGS: No acute fracture is seen in the right ankle. There is no joint effusion. There is mild bone marrow edema at the plantar posterior calcaneus. No fracture or erosion is seen. There are mild degenerative changes in the hindfoot and midfoot. The anterior and posterior talofibular ligaments are intact. The calcaneofibular ligament appears to be intact. The fibers of the deltoid ligament appear intact. The plantar fascia demonstrates edema and partial tearing at the origin with thickening. There is edema in the surrounding musculature. The sinus tarsi demonstrates normal fat signal. The Achilles tendon is intact. The tendons about the ankle are suboptimally evaluated due to positioning with focus on the hindfoot but no tear is identified. No focal muscular atrophy is seen. There does appear to be generalized muscular atrophy. No soft tissue masses or fluid collections are seen. IMPRESSION: Plantar fasciitis with marked edema, thickening, and partial tearing at the origin of the plantar fascia. Dictated by: Dictated on workstation # [id number]
== END ==
LOC: RAD 12:13
PROVIDERS: ATTEND Nurse Practitioner
DX: M72.2 Plantar fascial fibromatosis (principal)

== ENCOUNTER → 2021-09-06 | Outpatient (CLI) | payer MEDICARE, OTHER ==
--- NOTE | 2021-09-06 15:15 | Diagnostic Imaging Report ---
PROCEDURE: MRI left upper extremity without contrast. TECHNIQUE: Multiplanar, multisequence non contrast-enhanced MRI of the left upper extremity was accomplished. INDICATION: Left shoulder pain. COMPARISON: None. FINDINGS: No acute fracture is seen in the left shoulder. Alignment appears normal. 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 There are marginal osteophytes. There is superior migration of the humeral head up to the acromion with complete loss of the acromiohumeral space. There are severe degenerative changes in the acromioclavicular joint. There is a moderate left shoulder joint effusion. There is fluid in the subacromial/subdeltoid bursa. There is a complete tear of the supraspinatus tendon and of the infraspinatus tendon measuring greater than 5 cm transverse. There is medial retraction beyond the glenohumeral joint by about 5 cm. There is low-grade partial tearing of the teres minor tendon. The subscapularis tendon demonstrates a full-thickness tear of the cranial fibers. There is severe atrophy of the supraspinatus and infraspinatus musculature and mild atrophy in the subscapularis muscle. The long head of the biceps tendon demonstrates a complex longitudinal tear proximally. There may be a few fibers remaining intact at the anchor. The glenoid labrum demonstrates extensive complex tearing with no paralabral cyst. The acromion demonstrates an os acromiale and there is severe degenerative change at the acromioclavicular joint. There is remodeling of the acromion undersurface. There is partial tearing at the undersurface of the deltoid muscle. IMPRESSION: 1. Severe degenerative changes in the glenohumeral joint with articular surface remodeling. 2. Very large full-thickness rotator cuff tear with marked associated muscular atrophy and complete loss of the acromiohumeral space. 3. High-grade partial, if not complete, tear of the proximal long head of the biceps tendon. 4. Moderate left shoulder joint effusion. Dictated by: Dictated on workstation # [id number]
== END ==
LOC: RAD 12:20
PROVIDERS: ATTEND Orthopaedic Surgery
DX: M19.012 Primary osteoarthritis, left shoulder (principal); M75.122 Complete rotator cuff tear or rupture of left shoulder, not specified as traumatic; M62.512 Muscle wasting and atrophy, not elsewhere classified, left shoulder
CPT/HCPCS: 73221